=== PATIENT | female | born 1960 | race Caucasian/White ===

== ENCOUNTER 2019-01-10 16:05 | Inpatient (IN) | payer OTHER ==
[~2019-01-10] VITALS: Ht 165.1 cm; Wt 60.3 kg
[2019-01-10] MEDS ORDERED: antihypertensive PO (17:12)
[2019-01-10 19:06] LABS: BASOPHILS % (AUTO) 0.8 % (0.0-2.0); EOSINOPHILS % (AUTO) 1.2 % (1.0-6.0); HEMATOCRIT 37.2 % (36-46); HEMOGLOBIN 12.9 g/dL (12.0-16.0); LYMPHOCYTES # (AUTO) 1.3 K/uL (1.0-4.8); LYMPHOCYTES % (AUTO) 29.4 % (22.0-44.0); MEAN CORPUSCULAR HEMOGLOBIN 31.4 pg (26.0-34.0); MEAN CORPUSCULAR HGB CONC 34.6 G/dL (31.0-37.0); MEAN CORPUSCULAR VOLUME 91 fL (80-100); MONOCYTES # (AUTO) 0.4 K/uL (0.1-1.0); MONOCYTES % (AUTO) 8.9 % (2.0-9.0); NEUTROPHILS # (AUTO) 2.6 K/uL (1.8-7.7); NEUTROPHILS % (AUTO) 59.7 % (40.0-70.0); PLATELET COUNT (AUTO) 260 K/uL (150-450); RED BLOOD CELL COUNT(AUTO) 4.09 MIL/uL (4.00-5.20); RED CELL DISTRIBUTION WIDTH 14.1 % (11.5-14.5)
[2019-01-10 19:22] LABS: ANION GAP 8 mmol/L (8-16); CALCIUM, TOTAL 8.6 mg/dL (8.8-10.5); CARBON DIOXIDE 28 mmol/L (22-29); CHLORIDE 107 mmol/L (98-107); CREATININE 0.51 mg/dL (0.60-1.30); GLOMERULAR FILTR. RATE CALC > 60 mL/min (>60); GLUCOSE,RANDOM 111 mg/dL (70-110); POTASSIUM 3.8 mmol/L (3.5-5.1); SODIUM SERUM 143 mmol/L (136-145); UREA NITROGEN, BLOOD 14 mg/dL (7-18)
[2019-01-10 19:28] LABS: ALANINE AMINOTRANSFERASE 26 U/L (12-78); ALBUMIN 3.3 g/dL (3.4-5.0); ALKALINE PHOSPHATASE 63 U/L (46-116); ASPARTATE AMINOTRANSFERASE 23 U/L (15-37); BILIRUBIN,TOTAL 0.4 mg/dL (0.1-1.0); TOTAL PROTEIN, SERUM 6.2 g/dL (6.4-8.2)
[2019-01-10] MEDS ORDERED: HALOPERIDOL 5 MG TABLET PO PRN (20:30)
[2019-01-10] MEDS ORDERED: ZOLPIDEM TARTRATE 10 MG TABLET PO PRN (20:30)
[2019-01-10] MEDS ORDERED: LORazepam 2 MG TABLET PO PRN (20:30)
[2019-01-10 22:29] LABS: CHOL/HDL RATIO 2.6 (3.9-5.7); CHOLESTEROL 215 mg/dL (131-200); HDL CHOLESTEROL 82 mg/dL (40-60); LDL CHOL (CALC.) 117 mg/dL (0-130); THYROID STIMULATING HORMONE 0.39 uIU/mL (0.36-3.74); TRIGLYCERIDES 78 mg/dL (15-150)
[2019-01-10 22:48] VITALS: BP 131/86
[2019-01-11] MEDS ORDERED: DOCUSATE SODIUM 100 MG CAPSULE PO PRN
[2019-01-11] MEDS ORDERED: IBUPROFEN 400 MG TABLET PO PRN
[2019-01-11] MEDS ORDERED: PETROLATUM,WHITE 71 GM JELLY TP PRN
[2019-01-11] MEDS ORDERED: ONDANSETRON HCL 4 MG TABLET PO PRN
[2019-01-11] MEDS ORDERED: CloNIDine HCL 0.1 MG TABLET PO PRN
[2019-01-11] MEDS ORDERED: ALBUTEROL SULFATE HFA 90 MCG/PUFF 8 GM INHALER IH PRN
[2019-01-11] MEDS ORDERED: MAG HYDROX/AL HYDROX/SIMETH ES 30 ML SUSPENSION UDCUP PO PRN ×2 (11:00)
[2019-01-11] MEDS ORDERED: MAGNESIUM HYDROXIDE SUSPENSION 30 ML UDCUP PO PRN ×2 (11:00)
[2019-01-11] MEDS ORDERED: ACETAMINOPHEN 325 MG TABLET PO PRN (11:00)
[2019-01-11] MEDS ORDERED: HydrOXYzine PAMOATE 50 MG CAPSULE PO PRN (11:00)
[2019-01-11] MEDS ORDERED: LOPERAMIDE HCL 2 MG CAPSULE PO PRN ×2 (11:00)
[2019-01-11] MEDS ORDERED: PROMETHAZINE HCL 25 MG TABLET PO PRN (11:00)
[2019-01-11] MEDS ORDERED: TUBERCULIN, PURIFIED PROTEIN DERIVATIVE 5 TU/0.1 ML SYRINGE ID ONE (11:00)
[2019-01-11] MEDS ORDERED: GuaiFENesin/D-METHORPHAN [SUGAR-FREE] 200-20MG/10 ML SYRUP UDCUP PO PRN ×2 (11:00)
[2019-01-11 13:17] VITALS: BP 155/75
[2019-01-11] MEDS: THIAMINE HCL 100 MG TABLET PO SCH (17:25)
[2019-01-11 20:12] VITALS: BP 136/67
[2019-01-11] MEDS: MIRTAZAPINE 15 MG TABLET PO SCH (20:14)
[2019-01-11 20:15] VITALS: BP 141/79
[2019-01-11] MEDS: ACETAMINOPHEN 325 MG TABLET PO PRN (20:16)
[2019-01-12 10:10] VITALS: BP 164/85
[2019-01-12] MEDS: MULTIVITAMINS WITH MINERALS, THERAPEUTIC TABLET PO SCH (10:11)
[2019-01-12] MEDS: AmLODIPine BESYLATE 5 MG TABLET PO SCH (10:11)
[2019-01-12] MEDS: THIAMINE HCL 100 MG TABLET PO SCH ×2 (10:11→16:50)
[2019-01-12] MEDS: FOLIC ACID 1 MG TABLET PO SCH (10:11)
[2019-01-12 17:08] VITALS: BP 160/93
[2019-01-12] MEDS: MIRTAZAPINE 15 MG TABLET PO SCH (20:07)
[2019-01-12 22:14] VITALS: BP 147/89
[2019-01-12] MEDS: ACETAMINOPHEN 325 MG TABLET PO PRN (22:28)
[2019-01-13 00:59] VITALS: BP 137/62
[2019-01-13] MEDS: THIAMINE HCL 100 MG TABLET PO SCH ×2 (09:57→16:03)
[2019-01-13] MEDS: FOLIC ACID 1 MG TABLET PO SCH (09:58)
[2019-01-13] MEDS: MULTIVITAMINS WITH MINERALS, THERAPEUTIC TABLET PO SCH (09:58)
[2019-01-13] MEDS: AmLODIPine BESYLATE 5 MG TABLET PO SCH (09:58)
[2019-01-13 12:35] VITALS: BP 165/89
[2019-01-13 16:43] VITALS: BP 142/88
[2019-01-13] MEDS ORDERED: MIRTAZAPINE 30 MG TABLET PO SCH (21:00)
[2019-01-14 08:15] VITALS: BP 162/91
[2019-01-14] MEDS: THIAMINE HCL 100 MG TABLET PO SCH (08:41)
[2019-01-14] MEDS: MULTIVITAMINS WITH MINERALS, THERAPEUTIC TABLET PO SCH (08:41)
[2019-01-14] MEDS: FOLIC ACID 1 MG TABLET PO SCH (08:41)
[2019-01-14] MEDS ORDERED: AmLODIPine BESYLATE 10 MG TABLET PO SCH (09:00)
[2019-01-14 10:19] LABS: AMPHET/METH SCREEN,URINE NEGATIVE (NEGATIVE); BARBITURATE SCREEN, URINE NEGATIVE (NEGATIVE); BENZODIAZEPINES SCREEN,URINE NEGATIVE (NEGATIVE); CANNABINOID SCREEN,URINE NEGATIVE (NEGATIVE); COCAINE SCREEN,URINE NEGATIVE (NEGATIVE); METHADONE SCREEN, URINE NEGATIVE (NEGATIVE); OPIATE SCREEN,URINE NEGATIVE (NEGATIVE); PHENCYCLIDINE SCREEN,URINE NEGATIVE (NEGATIVE)
[2019-01-14 10:52] LABS: APPEARANCE,URINE CLOUDY (CLEAR); BILIRUBIN,URINE NEGATIVE (NEGATIVE); GLUCOSE, URINE (UA) NEGATIVE (NEGATIVE); KETONES,URINE 40 mg/dL (NEGATIVE); LEUKOCYTE ESTERASE ,URINE SMALL (NEGATIVE); NITRATE,URINE NEGATIVE (NEGATIVE); OCCULT BLOOD,URINE NEGATIVE (NEGATIVE); PH,URINE 6.5 (5.0-8.0); PROTEIN,URINE POS 1+ (NEGATIVE); UROBILINOGEN,URINE 0.2 mg/dL (<=1.0)
[2019-01-14] MEDS ORDERED: MIRT30 PO (11:12)
[2019-01-14 11:19] LABS: BACTERIA,URINE Few /HPF (None Seen); RBC,URINE 0-2 /HPF (0-2); SQUAMOUS EPITHELIAL CELL,UR Few /LPF (None Seen); URIC ACID CRYSTALS,URINE Moderate /LPF (None Seen)
[2019-01-14] MEDS ORDERED: AMLO-512 PO (11:20)
== END 2019-01-14 15:45 | disposition home or self-care (01) | DRG 885 ==
LOC: EMS 16:06 → 3EI 21:00
PROVIDERS: ADMIT Psychiatry & Neurology Psychiatry; ATTEND Psychiatry & Neurology Psychiatry
DX: F33.9 Major depressive disorder, recurrent, unspecified (principal); R45.851 Suicidal ideations; I10 Essential (primary) hypertension; D72.819 Decreased white blood cell count, unspecified; E78.5 Hyperlipidemia, unspecified; Z91.19 Patient's noncompliance with other medical treatment and regimen; Z65.3 Problems related to other legal circumstances; Z59.9 Problem related to housing and economic circumstances, unspecified
CPT/HCPCS: 80307; 83036; 84439; 84443; G0480